=== PATIENT | female | born 1985 | race Caucasian/White ===

== ENCOUNTER 2017-02-07 10:29 | Emergency (ER) | payer OTHER ==
[~2017-02-07] VITALS: Ht 157.5 cm; Wt 51.4 kg
[~2017-02-07 10:29] MED LIST: ACYC1CAP8 PO; BCPILLS PO; ESCI10TA17 PO; PRED20TA PO
[2017-02-07 10:35] VITALS: TEMP 37.1; Ht 157.5 cm; Wt 51.4 kg
[2017-02-07] MEDS ORDERED: SERT1TAB68 PO (10:59)
[2017-02-07] MEDS ORDERED: BUSP15TA70 PO (10:59)
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
--- NOTE | 2017-02-07 11:34 | DIAGNOSTIC IMAGING REPORT ---
CERVICAL SPINE CT CT DOSE: 480.93 mGycm HISTORY: Trauma. Pain. fall, neck pain TECHNIQUE: Multiaxial CT images of the cervical spine were performed and reformatted in the sagittal and coronal plane without the use of contrast. COMPARISON: None. FINDINGS: No fractures. No subluxation. Prevertebral soft tissues and the C1-C2 interval are intact. No pneumothorax. IMPRESSION: No fractures within the cervical spine. Electronically signed by: Yossi Hyman M.D. 02/07/2017 11:33 AM Dictated Date/Time: 02/07/2017 11:30 AM
--- NOTE | 2017-02-07 11:45 | DIAGNOSTIC IMAGING REPORT ---
LEFT SHOULDER MIN 2 VIEWS ROUTINE CLINICAL HISTORY: fall, left shoulder pain COMPARISON: None. DISCUSSION: The bones and joint spaces appear intact. There is no evidence of fracture, dislocation or bony disease. There is no evidence for soft tissue swelling. IMPRESSION: Negative study. Electronically signed by: Yossi Hyman M.D. 02/07/2017 11:44 AM Dictated Date/Time: 02/07/2017 11:44 AM
--- NOTE | 2017-02-07 11:45 | DIAGNOSTIC IMAGING REPORT ---
LEFT WRIST W/NAVICULAR MIN 3 VIEWS CLINICAL HISTORY: fall, left wrist pain trauma. Pain. COMPARISON: None. DISCUSSION: The bones and joint spaces appear intact. There is no evidence of fracture, dislocation or bony disease. There is no evidence for soft tissue swelling. IMPRESSION: Negative study. Electronically signed by: Yossi Hyman M.D. 02/07/2017 11:44 AM Dictated Date/Time: 02/07/2017 11:43 AM
--- NOTE | 2017-02-07 13:00 | DIAGNOSTIC IMAGING REPORT ---
CT SCAN OF THE BRAIN WITHOUT IV CONTRAST CLINICAL HISTORY: Fall. Head injury. COMPARISON STUDY: No priors. TECHNIQUE: Unenhanced axial CT scan of the brain is performed from the vertex to the skull base. Automated dose control exposure was utilized. FINDINGS: Brain parenchyma: The brain parenchyma is normal in appearance. There is no hemorrhage, mass effect, or evidence of acute territorial ischemia by CT criteria. Forrester-white matter is preserved. No extra-axial fluid collection is seen. Ventricles, sulci, cisterns: Normal in configuration. Intracranial vasculature: The visualized intracranial vasculature at the skull base is normal in appearance. Calvarium: There is no depressed calvarial fracture. Soft tissues: There is a large left posterior parietal scalp hematoma. Sinuses and mastoids: The visualized paranasal sinuses are clear. The mastoid air cells are well pneumatized. Orbits: The bony orbits are grossly intact. IMPRESSION: 1. No acute intracranial abnormality. 2. Left posterior parietal scalp hematoma. No depressed calvarial fracture is seen. Electronically signed by: Joel Young M.D. 02/07/2017 12:59 PM Dictated Date/Time: 02/07/2017 12:55 PM
[2017-02-07 14:14] VITALS: BP 105/62; PULSE 87; O2SAT 98
--- NOTE | 2017-02-07 14:18 | DIAGNOSTIC IMAGING REPORT ---
LEFT FINGER(S) MIN 2 VIEWS ROUTINE CLINICAL HISTORY: left third finger injury trauma COMPARISON: None. DISCUSSION: Small avulsion base middle phalanx. Mild soft tissue edema. No evidence of dislocation. Mild soft tissue edema IMPRESSION: Small avulsion base middle phalanx. Electronically signed by: Yossi Hyman M.D. 02/07/2017 2:17 PM Dictated Date/Time: 02/07/2017 2:16 PM
== END 2017-02-07 14:56 | disposition home or self-care (01) ==
LOC: C.EDB 10:30 → C.EDC 14:56
DX: S62.653A Nondisplaced fracture of middle phalanx of left middle finger, initial encounter for closed fracture (principal); S09.90XA Unspecified injury of head, initial encounter; S60.812A Abrasion of left wrist, initial encounter; S40.212A Abrasion of left shoulder, initial encounter; S80.212A Abrasion, left knee, initial encounter; S00.01XA Abrasion of scalp, initial encounter; W19.XXXA Unspecified fall, initial encounter; Y92.009 Unspecified place in unspecified non-institutional (private) residence as the place of occurrence of the external cause

== ENCOUNTER → 2017-05-22 | Outpatient (CLI) | payer OTHER ==
[~2017-05-22] MED LIST changes: -ACYC1CAP8 PO; -BCPILLS PO; +BUSP15TA70 PO; -ESCI10TA17 PO; -PRED20TA PO; +SERT1TAB68 PO
== END | disposition home or self-care (01) ==
LOC: C.PAPS 09:56
PROVIDERS: ATTEND Physician Assistant
DX: N93.0 Postcoital and contact bleeding (principal)

== ENCOUNTER → 2017-05-22 | Outpatient (CLI) | payer OTHER | END | disposition home or self-care (01) | LOC: C.LAB1850 12:28 | PROVIDERS: ATTEND Physician Assistant | DX: Z11.3 Encounter for screening for infections with a predominantly sexual mode of transmission (principal) ==